=== PATIENT | male | born 1965 | race Caucasian/White ===

== ENCOUNTER 2024-01-10 20:22 | Emergency (ER) | payer OTHER ==
[~2024-01-10] VITALS: Ht 180.3 cm; Wt 65.7 kg
[2024-01-10] MEDS ORDERED: IPRATROPIUM-Albuterol 0.5MG-2.5MG/3 ML NEB ONE (20:50)
[2024-01-10] MEDS ORDERED: Levofloxacin 750 mg Premix 150 ML IV ONE (20:50)
[2024-01-10] MEDS ORDERED: methylPREDNISolone SODIUM SUCC 125 MG/2 ML SDV IV ONE (20:50)
[2024-01-10] MEDS ORDERED: KETOROLAC TROMETHAMINE 30 MG/ML SDV IV ONE (20:50)
[2024-01-10] MEDS ORDERED: MORPHINE SULFATE 4 MG/ML VIAL IV ONE (20:50)
[2024-01-10 21:11] LABS: BASO% 0.1 % (0-3); HEMOGLOBIN 11.3 g/dl (14.0-18.0); IMMATURE GRANULOCYTES 3.5 % (0.0-5.0); LYMPH% 9.2 % (15-41); MEAN CELL VOLUME 82.2 fL CALC (80.0-100.0); MEAN CORPUSCULAR HGB 25.8 pG CALC (26.0-32.0); MEAN CORPUSCULAR HGB CONC 31.4 g/dL CAL (32.0-36.0); NEUT% 81.2 % (42-76); RED BLOOD COUNT 4.38 mill/uL (4.70-6.10)
[2024-01-10 21:21] LABS: ALBUMIN 3.5 g/dL (3.2-5.0); BILIRUBIN, TOTAL 0.4 mg/dL (0.2-1.3); CREATININE 0.8 mg/dL (0.7-1.3); POTASSIUM 4.3 mmol/l (3.5-5.1); TOTAL PROTEIN 6.5 g/dL (6.3-8.2)
[2024-01-10] MEDS ORDERED: VENTOLIN HFA IN (21:58)
[2024-01-10] MEDS ORDERED: ALBUTEROL SUL0.083 % IN (21:58)
[2024-01-10] MEDS ORDERED: LEVOFLOXACIN750 MG PO (21:58)
[2024-01-10] MEDS ORDERED: TRELEGY ELLIPTA1 AER INHW/SPAC (21:58)
[2024-01-10 22:46] VITALS: BP 139/93
== END 2024-01-10 23:33 | disposition home or self-care (01) | DRG 194 ==
LOC: ED 20:22
PROVIDERS: Family Medicine
DX: J18.9 Pneumonia, unspecified organism (principal); J44.0 Chronic obstructive pulmonary disease with (acute) lower respiratory infection; Z87.891 Personal history of nicotine dependence; Z20.822 Contact with and (suspected) exposure to COVID-19